=== PATIENT | female | born 1970 | race Caucasian/White ===

== ENCOUNTER 2023-07-22 08:58 | Day surgery (SDC) | payer OTHER ==
[~2023-07-22] VITALS: Ht 154.9 cm; Wt 81.6 kg
[2023-07-22] MEDS ORDERED: MEPERIDINE 100 MG INJ. 100 MG/ML VIAL ONE (09:15)
[2023-07-22] MEDS ORDERED: MIDAZOLAM HCL 5 MG/5 ML VIAL ONE (09:15)
[2023-07-22 09:51] LABS: HCG,QUAL RESULT NEGATIVE (NEGATIVE)
[2023-07-22] MEDS ORDERED: SIMETHICONE 40 MG/0.6 ML ML ONE (10:52)
[2023-07-22 12:22] VITALS: O2SAT 97
[2023-07-22 12:59] VITALS: BP_SYST 112; PULSE 72; RESP 16
== END 2023-07-22 09:10 | disposition home or self-care (01) ==
LOC: SDS 08:58 → SMU 09:00 → SDS 09:10
PROVIDERS: ATTEND Student in an Organized Health Care Education/Training Program
DX: Z12.11 Encounter for screening for malignant neoplasm of colon (principal); K63.5 Polyp of colon; K57.30 Diverticulosis of large intestine without perforation or abscess without bleeding; K64.8 Other hemorrhoids; Z79.899 Other long term (current) drug therapy
CPT/HCPCS: 45380; 99152; 84703; 88305; 99153; G0378; J2250; J2175